=== PATIENT | female | born 1965 | race Caucasian/White ===

== ENCOUNTER 2016-10-23 09:01 | Emergency (ER) | payer MEDICARE, MEDICAID ==
[2016-10-23 09:09] VITALS: BP 109/70
--- NOTE | 2016-10-23 09:24 | UC ---
Respiratory Complaint HPI - HPI Summary HPI Summary: patient has had a severe cough for the past few days. she has a V/P shunt. denies fever. - History of Current Complaint Chief Complaint: UCRespiratory Stated Complaint: COUGH Time Seen by Provider: 10/23/16 09:13 Hx Obtained From: Patient Hx Last Menstrual Period: march 2016 ?: No Onset/Duration: Sudden Onset, Lasting Days Timing: Intermittent Episodes Severity Initially: Mild Severity Currently: Moderate Aggravating Factors: Deep Breaths, Recumbent Position Associated Signs And Symptoms: Positive: Wheezing - Risk Factors Pulmonary Embolism Risk Factors: Negative - Allergies/Home Medications Allergies/Adverse Reactions: Allergies Allergy/AdvReac Type Severity Reaction Status Date / Time Nickel Allergy Rash Verified 10/23/16 09:10 Home Medications: Home Medications Albuterol HFA INHALER* [Ventolin HFA Inhaler*] 2 puff INH Q4H PRN 10/23/16 [ History Confirmed 10/23/16] Calcium Carbonate [Calcium 600] 600 mg PO BID PRN 10/23/16 [History Confirmed ] Cholecalciferol [Vitamin D] 1,000 unit PO DAILY 10/23/16 [History Confirmed ] Montelukast Sodium TAB* [Singulair TAB*] 10 mg PO BEDTIME 10/23/16 [History Confirmed 10/23/16] PHENobarbital TAB(*) 60 mg PO BID 10/23/16 [History Confirmed 10/23/16] ValACYclovir (*) [Valtrex 1 GM(*)] 1 gm PO BID PRN 10/23/16 [History Confirmed 10/23/16] PMH/Surg Hx/FS Hx/Imm Hx Previously Healthy: Yes - Surgical History Surgical History: Yes Surgery Procedure, Year, and Place: Shunt 08/1966 - Family History Known Family History: Negative: Cardiac Disease, Hypertension - Social History Alcohol Use: None Substance Use Type: None Smoking Status (MU): Never Smoked Tobacco Review of Systems Constitutional: Negative Skin: Negative Eyes: Negative ENT: Negative Respiratory: Cough Cardiovascular: Negative Gastrointestinal: Negative Genitourinary: Negative Motor: Negative Neurovascular: Negative Musculoskeletal: Negative Neurological: Negative Psychological: Negative All Other Systems Reviewed And Are Negative: Yes Physical Exam Triage Information Reviewed: Yes Appearance: No Pain Distress, Well-Nourished, Ill-Appearing Vital Signs: Initial Vital Signs Temp 97.5 F 10/23/16 09:03 Pulse 72 10/23/16 09:03 Resp 16 10/23/16 09:03 BP 109/70 10/23/16 09:03 Pulse Ox 97 10/23/16 09:03 Vital Signs Reviewed: Yes Eye Exam: Normal ENT: Positive: Pharynx normal, Pharyngeal erythema, TMs normal Dental Exam: Normal Neck exam: Normal Respiratory: Positive: Crackles, Wheezing, Inspiration Cardiovascular Exam: Normal Cardiovascular: Positive: RRR, No Murmur, Pulses Normal Abdominal Exam: Normal Abdomen Description: Positive: Nontender, No Organomegaly, Soft Bowel Sounds: Positive: Present Musculoskeletal Exam: Normal Musculoskeletal: Positive: Strength Intact, ROM Intact, No Edema Neurological Exam: Normal Neurological: Positive: Alert, Muscle Tone Normal Psychological Exam: Normal Skin Exam: Normal UC Diagnostic Evaluation - Laboratory O2 Sat by Pulse Oximetry: 97 Respiratory Course/Dx - Course Course Of Treatment: hx obtained, exam performed ,meds reviewed, chest xray obtained and is negative, given prednisone for bronchospasm - Differential Dx/Diagnosis Differential Diagnosis/HQI/PQRI: Asthma, Bronchitis, CHF, Exacerbation Of COPD, Lower Resp Infection Provider Diagnoses: bronchospasm Discharge - Discharge Plan Condition: Stable Disposition: HOME Prescriptions: predniSONE TAB* [Deltasone TAB*] 40 mg PO DAILY #14 tab Patient Education Materials: Bronchospasm (ED) Additional Instructions: 1. take the medication as prescribed. 2./ Continue with hot tea, honey and cough drops as needed. 3. Follow up with any increase in symtpoms.
--- NOTE | 2016-10-23 09:38 | RAD ---
INDICATION: Cough. Short of breath. COMPARISON: None TECHNIQUE: PA and lateral dual-energy views were obtained. FINDINGS: Bones/Soft Tissues: There are no acute bony findings. There are bilateral shunt catheters Cardiomediastinal: The cardiomediastinal silhouette is normal. Lungs: There are no infiltrates. Pleura: There are no pleural effusions. Other: None IMPRESSION: NO ACTIVE DISEASE.
== END 2016-10-23 09:56 | disposition home or self-care (01) ==
LOC: UCCORT 09:01
DX: J98.01 Acute bronchospasm (principal); Z98.2 Presence of cerebrospinal fluid drainage device
CPT/HCPCS: 71020; 99212; G0463

== ENCOUNTER 2018-04-02 16:13 | Emergency (ER) | payer MEDICARE, MEDICAID ==
--- OUTSIDE RECORDS SUMMARY | 2018-04-02 16:24 | XMS REPORT | Continuity of Care Document ---
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 Ephraim Piña MD Primary Care Physician Unavailable Payers Type Date Identification Numbers Payment Provider Subscriber Policy Number: [id number] Medicare Noemí Madsen PayID: [id number] [address] [place] [address] Policy Number: [id number] Medicaid Noemí Madsen PayID: [id number] [address] [place] [address] Policy Number: [id number] Noemí Madsen PayID: [id number] [facility] [address] Attn: [place] [address] Advance Directives Description No Information Available Problems Date Description Provider Status Onset: 03/03/2014 Breast finding Jared Degroot MD Active Onset: 08/24/2015 Closed fracture of distal end of radius Yana Estrada PA Active Onset: 04/21/2017 Closed fracture of upper end of humerus Paul Ellison M.D. Active Onset: 05/11/2017 Pain in axilla Jocelyn Shen MD Active Onset: 05/11/2017 Exposure to other specified factors, Jocelyn Shen MD Active sequela Onset: 08/23/2017 Shoulder joint pain Jocelyn Shen MD Active Family History Date Family Member(s) Problem(s) Comments Father blindness Father Chronic Obstructive Pulmonary Disease (COPD) Father Asthma Father Emphysema Grandfather Cancer Grandmother Breast Cancer Maternal Grandmother Diabetes Social History Type Date Description Comments Sex Unknown Marital Status Single Lives With Assisted Living Through Family Nursing Home Environment Lives With caregiver and family of caregiver Diet Healthy, Well Balanced Occupation Currently Working Occupation [employer] Tobacco Use Start: Unknown Never Smoked Cigarettes ETOH Use Denies alcohol use Tobacco Use Start: Unknown Patient has never smoked Smoking Status Reviewed: 02/13/18 Patient has never smoked Allergies, Adverse Reactions, Alerts Date Description Reaction Status Severity Comments 02/25/2014 NKDA Active 03/03/2014 Nickel Active Medications Medication Date Status Form Strength Qnty SIG Indications Ordering Provider Cetirizine HCL 11/29 Active Tablets 10mg 30tab Take One J30.0 Cash, s Tablet By MD Sumit Mouth Every Evening Fluticasone 11/29 Active Suspension 50mcg/Act 16uni [place] 1 Cash ts [place] In MD Sumit Each Nostril Once Daily Calcium 600+D Active Tablets 600-400mg 2 tabs po Unknown High Potency /0000 -Unit Phenobarbital Active Tablets 64.8mg bid Unknown /0000 Vitamin D Active Tablets 1000Unit 1 by mouth Unknown /0000 twice a day Valtrex Active Tablets 1gm 2 by mouth Unknown /0000 twice a day as needed Qnasl 11/29 Hx Aerosol 80mcg/Act 8.700 Take 1 spray J30.0 gm to both MD Sumit - nostrils 11/29 daily. Singulair Hx Tablets 10mg 1 by mouth Unknown /0000 every day - 12/29 Acyclovir Hx Ointment 5% 15gm take as Unknown /0000 directed - 10/13 Sudafed Hx Tablets 30mg as needed Unknown /0000 cold - symptoms 08/23 Preparation H Hx Cream 1% Unknown Hydrocortisone /0000 - 08/23 Valtrex 00 Hx Tablets 1gm by mouth Unknown /0000 every day - 08/23 Mucinex Hx Tablets ER 600mg 60tab 1 by mouth Unknown /0000 12HR s every day Proair HFA Hx Aerosol 108(90Bas 3unit 2 puffs Unknown /0000 e) s every 4 - mcg/Act hours as 08/23 needed Aleve Hx Capsules 220mg 1 tab q8 h Unknown /0000 prn - 08/23 Acetaminophen 0000 Hx Tablets 325mg 100ta i-ii by Clune, /0000 bs mouth every Jenniferl - 4 hours as eigh, [employer] 08/23 needed Kaopectate Hx Suspension 262mg/15M 2 tablespoon Clune, /0000 L by mouth Jenniferl - after each eigh, [employer] 08/23 loose bm as /2015 needed Mylanta Hx Suspension 200-200-2 355un take 1 Clune, /0000 0mg/5ML its tablespoonfu Jenniferl - ls q 4hr prn eigh, [facility] 08/23 as needed Hydrocortisone Hx Cream 1% 45gm apply Clune, /0000 sparingly to Jenniferl - rash twice a eigh, [facility] Bacitracin Hx Ointment 500Unit/G 120un use on sores Clune, /0000 M its as needed Jenniferl - eigh, [employer] 08/23 Lotrimin AF Hx Cream 1% 1tube apply thin Clune, /0000 layer Jenniferl - eigh, [facility] 08/23 Mucinex Hx Tablets ER 600mg 60tab one tab by Clune, /0000 12HR s mouth twice Jenniferl - a day as eigh, [facility] 08/23 needed nasal stuffiness Aleve 00 Hx Capsules 220mg as needed q Unknown /0000 6 hours - 03/22 Acetaminophen 0000 Hx Tablets 325mg 2 by mouth Unknown /0000 every 4 - hours as 03/22 Kaopectate 00 Hx Suspension 262mg/15M 2 table Unknown /0000 L spoon - 03/22 Mylanta Hx Suspension 200-200-2 1 tlbs po as Unknown /0000 0mg/5ML needed q 4 - hours 03/22 Hydrocortisone 0000 Hx Cream 1% apply as Unknown /0000 needed to - skin rash 03/22 Bacitracin 00 Hx Ointment 500Unit/G Unknown (External) /0000 M - 03/22 Preparation H Hx Cream 1-0.25-14 appply to Unknown /0000 .4-15% skin for - itchy skin 03/22 Lotrimin Ultra Hx Cream 1% prn Unknown /0000 - 03/22 Mucinex Hx Tablets ER 600mg as needed Unknown /0000 12HR - 03/22 Proair HFA Hx Aerosol 108(90Bas as needed Unknown /0000 e) for cough - mcg/Act 03/[address] 20mg 1 by mouth Unknown /0000 every day Percocet Hx Tablets 5-325mg 1 by mouth Unknown /0000 every 6 hour - as needed 05/11 /2017 Ibuprofen Hx Tablets 600mg 90tab 1 tabs by Unknown /0000 s mouth every - 6 hours as 03/22 needed for pain Immunizations Description No Information Available Vital Signs Date Vital Result Comment 03/22/2018 10:03am BP Systolic Sitting Left Arm 107 mmHg BP Diastolic Sitting Left Arm 68 mmHg Body Temperature 99.2 F Heart Rate 80 /min O2 % BldC Oximetry 95 % 03/14/2018 3:51pm Heart Rate 66 /min Height 57.5 inches 4'9.50" Weight 169.50 lb BMI (Body Mass Index) 36.0 kg/m2 BSA (Body Surface Area) 1.69 m2 Welch body weight in kilograms 45 kg O2 % BldC Oximetry 99 % 02/13/2018 9:21am BP Systolic 118 mmHg BP Diastolic 64 mmHg Body Temperature 97.6 F Heart Rate 56 /min Height 57.5 inches 4'9.50" Weight 167.00 lb BMI (Body Mass Index) 35.5 kg/m2 BSA (Body Surface Area) 1.68 m2 Welch body weight in kilograms 45 kg O2 % BldC Oximetry 98 % Pain Level 0 01/01/2018 9:13am BP Systolic 103 mmHg BP Diastolic 71 mmHg Body Temperature 97.8 F Heart Rate 65 /min Respiratory Rate 20 /min Height 57.5 inches 4'9.50" Weight 168.38 lb BMI (Body Mass Index) 35.8 kg/m2 BSA (Body Surface Area) 1.68 m2 Welch body weight in kilograms 45 kg O2 % BldC Oximetry 96 % Ra Pain Level 0 12/11/2017 1:33pm BP Systolic Sitting Right Arm 117 mmHg BP Diastolic Sitting Right Arm 77 mmHg Body Temperature 97.4 F Heart Rate 68 /min Respiratory Rate 17 /min Height 57.5 inches 4'9.50" Weight 169.00 lb BMI (Body Mass Index) 35.9 kg/m2 BSA (Body Surface Area) 1.69 m2 Welch body weight in kilograms 45 kg O2 % BldC Oximetry 96 % 12/05/2017 7:57am BP Systolic 120 mmHg BP Diastolic 82 mmHg Heart Rate 78 /min Height 57.5 inches 4'9.50" Weight 192.00 lb BMI (Body Mass Index) 40.8 kg/m2 BSA (Body Surface Area) 1.78 m2 Welch body weight in kilograms 45 kg O2 % BldC Oximetry 94 % 11/15/2017 4:01pm Height 60 inches 5'0" Weight 170.00 lb BMI (Body Mass Index) 33.2 kg/m2 BSA (Body Surface Area) 1.74 m2 Welch body weight in kilograms 45 kg 11/02/2017 7:58am BP Systolic Sitting Left Arm 131 mmHg BP Diastolic Sitting Left Arm 79 mmHg Body Temperature 98.3 F Heart Rate 71 /min Respiratory Rate 17 /min Height 60 inches 5'0" Weight 169.00 lb BMI (Body Mass Index) 33.0 kg/m2 BSA (Body Surface Area) 1.74 m2 Welch body weight in kilograms 45 kg O2 % BldC Oximetry 95 % 08/23/2017 8:35am BP Systolic Sitting Right Arm 115 mmHg BP Diastolic Sitting Right Arm 78 mmHg Body Temperature 98.0 F Heart Rate 63 /min Respiratory Rate 17 /min Height 60 inches 5'0" Weight 166.00 lb BMI (Body Mass Index) 32.4 kg/m2 BSA (Body Surface Area) 1.72 m2 Welch body weight in kilograms 45 kg O2 % BldC Oximetry 97 % 07/10/2017 8:56am BP Systolic Sitting Right Arm 122 mmHg BP Diastolic Sitting Right Arm 81 mmHg Body Temperature 98.0 F Heart Rate 70 /min Respiratory Rate 17 /min Height 60 inches 5'0" Weight 164.00 lb BMI (Body Mass Index) 32.0 kg/m2 BSA (Body Surface Area) 1.72 m2 Welch body weight in kilograms 45 kg 06/05/2017 1:18pm BP Systolic Sitting Right Arm 126 mmHg BP Diastolic Sitting Right Arm 76 mmHg Body Temperature 98.4 F Heart Rate 92 /min Respiratory Rate 18 /min Height 60 inches 5'0" Weight 163.00 lb BMI (Body Mass Index) 31.8 kg/m2 BSA (Body Surface Area) 1.71 m2 Welch body weight in kilograms 45 kg 05/19/2017 9:35am BP Systolic Sitting Left Arm 103 mmHg BP Diastolic Sitting Left Arm 68 mmHg Body Temperature 97.7 F Heart Rate 63 /min Respiratory Rate 24 /min Height 60 inches 5'0" Weight 1614.00 lb BMI (Body Mass Index) 315.2 kg/m2 BSA (Body Surface Area) 4.53 m2 Welch body weight in kilograms 45 kg O2 % BldC Oximetry 96 % Ra 05/11/2017 3:26pm BP Systolic Sitting Right Arm 111 mmHg BP Diastolic Sitting Right Arm 70 mmHg Body Temperature 97.9 F Heart Rate 72 /min Respiratory Rate 18 /min Height 60 inches 5'0" Weight 161.00 lb BMI (Body Mass Index) 31.4 kg/m2 BSA (Body Surface Area) 1.70 m2 Welch body weight in kilograms 45 kg 05/03/2017 10:01am BP Systolic Sitting Left Arm 106 mmHg BP Diastolic Sitting Left Arm 73 mmHg Body Temperature 97.9 F Heart Rate 72 /min Respiratory Rate 20 /min Height 60 inches 5'0" Weight 163.00 lb BMI (Body Mass Index) 31.8 kg/m2 BSA (Body Surface Area) 1.71 m2 Welch body weight in kilograms 45 kg 04/21/2017 9:34am BP Systolic Sitting Right Arm 112 mmHg BP Diastolic Sitting Right Arm 72 mmHg Body Temperature 98.3 F Heart Rate 71 /min Respiratory Rate 19 /min Height 60 inches 5'0" Weight 153.00 lb BMI (Body Mass Index) 29.9 kg/m2 BSA (Body Surface Area) 1.67 m2 Welch body weight in kilograms 45 kg 03/15/2017 8:39am Weight 164.38 lb 12/29/2016 1:04pm BP Systolic Sitting Left Arm 124 mmHg BP Diastolic Sitting Left Arm 80 mmHg Heart Rate 81 /min Respiratory Rate 16 /min Height 57 inches 4'9" Weight 162.00 lb BMI (Body Mass Index) 35.1 kg/m2 BSA (Body Surface Area) 1.64 m2 Welch body weight in kilograms 45 kg O2 % BldC Oximetry 97 % Ora 11/29/2016 12:55pm BP Systolic Sitting Left Arm 102 mmHg BP Diastolic Sitting Left Arm 66 mmHg Heart Rate 75 /min Respiratory Rate 18 /min Height 57 inches 4'9" Weight 162.00 lb BMI (Body Mass Index) 35.1 kg/m2 BSA (Body Surface Area) 1.64 m2 Welch body weight in kilograms 45 kg O2 % BldC Oximetry 96 % 09/01/2016 3:36pm BP Systolic 116 mmHg BP Diastolic 78 mmHg Height 57 inches 4'9" Weight 161.00 lb BMI (Body Mass Index) 34.8 kg/m2 BSA (Body Surface Area) 1.64 m2 Welch body weight in kilograms 45 kg 12/11/2015 9:58am Weight 166.00 lb 09/29/2015 8:48am Weight 167.00 lb 08/24/2015 11:00am BP Systolic Sitting Left Arm 132 mmHg BP Diastolic Sitting Left Arm 90 mmHg Height 59 inches 4'11" Weight 169.00 lb BMI (Body Mass Index) 34.1 kg/m2 BSA (Body Surface Area) 1.72 m2 Welch body weight in kilograms 45 kg 10/13/2014 1:52pm BP Systolic 116 mmHg BP Diastolic 72 mmHg Heart Rate 78 /min Respiratory Rate 18 /min Height 60 inches 5'0" Weight 163.00 lb BMI (Body Mass Index) 31.8 kg/m2 BSA (Body Surface Area) 1.71 m2 Last Menstrual Period [id number] 03/03/2014 3:07pm Heart Rate 76 /min Respiratory Rate 18 /min Height 60 inches 5'0" Weight 174.00 lb BMI (Body Mass Index) 34.0 kg/m2 BSA (Body Surface Area) 1.76 m2 Results Test Date Facility Test Result H/L Range Note Xray 08/23/2016 [facility] - Radiology Ultrasound, birads 3, [address] Breast - Right mo f/u [place], [place] [id number] [phone] Laboratory test 03/10/2014 [facility] Breast Biopsy - See Note [address] [place] [address] [phone] OPERATION/PROCEDURE U/S guided right breast biopsy DIAGNOSIS: PART 1: "RIGHT BREAST CORE BIOPSY AT 12:00, 2 CM. FROM NIPPLE": FIBROCYSTIC CHANGE CONSISTING OF STROMAL FIBROSIS, DUCTAL DILATION, MILD DUCTAL HYPERPLASIA WITHOUT ATYPIA, AND MICROCALCIFICATIONS ASSOCIATED WITH EPITHELIAL STRUCTURES. PART 2: "RIGHT BREAST CORE BIOPSY AT 12:00, 1 CM. FROM NIPPLE": FIBROADENOMA. ARY/theodore GROSS Part 1. Received in formalin labeled, "RIGHT BREAST CORE BIOPSY AT 12:00, 2 CM. FROM NIPPLE", are three pieces of god[place], soft fibroadipose tissue measuring up to 1.8 cm. in length and 0.2 cm. in diameter. Submitted in toto in block #1. Part 2. Received in formalin labeled, "RIGHT BREAST CORE BIOPSY AT 12:00, 1 CM. FROM NIPPLE", are three pieces of [place], soft fibroadipose tissue measuring up to 1.8 cm. in length and 0.2 cm. in diameter. Submitted in toto in block #2. ARY/theodore MICROSCOPIC Part 1: Sections show several changes characterized by: an increase in stromal fibrosis, ductal dilation and microcalcifications associated with epithelial structures. Focally the terminal duct lobular unit are slightly dilated and filled with slightly monotonous cells, raising the concern of a lobular hyperplasia. Immunohistochemistry studies were performed at [facility] and interpreted at [facility] with proper controls. These cells are positive for E-cadherin, consistent with mild usual ductal hyperplasia. Part 2: Sections show a proliferating, dense fibrosis distorting, stretching , and distorting epithelial elements. PRE OPERATIVE DIAGNOSIS Abnormal findings on radiological exam of right breast REVIEW CODE CODE: I Signed Electronically signed JARED VALE MD 03/12/14 1306 Procedures Date Code Description Status 02/13/2018 65560 Radiology, Wrist Complete Completed 01/01/2018 16876 Radiology, Wrist Complete Completed 12/11/2017 00476 Radial shaft fracture closed w/o manipulation Completed 12/05/2017 30415 Debridement Nails Any Method 6 Or More Completed 11/02/2017 69430 Radiology, Shoulder: Two Views (Sso) Completed 08/23/2017 88911 Radiology, Shoulder: Two Views (Sso) Completed 07/10/2017 03172 Radiology, Shoulder: Two Views (Sso) Completed 06/05/2017 67021 Radiology, Shoulder: Two Views (Sso) Completed 05/19/2017 78201 Radiology, Shoulder: Two Views (Sso) Completed 05/19/2017 66218 Radiology, Shoulder: Two Views (Sso) Completed 05/11/2017 09241 Radiology, Shoulder: Two Views (Sso) Completed 05/11/2017 05908 Radiology, Shoulder: Two Views (Sso) Completed 05/03/2017 67602 Radiology, Shoulder: Two Views (Sso) Completed 04/24/2017 12841 FX proximal humeral w/manipulation w/wo traction Completed 04/24/2017 70813 FX proximal humeral w/manipulation w/wo traction Completed 04/24/2017 72558 Injection For Nerve Block, Brachial Plexus Single Completed 04/24/2017 60137 Injection For Nerve Block, Brachial Plexus Single Completed 11/29/2016 24899 Bronchospasm Provocation Evaluation Multi Spirometric Completed Determinati 11/29/2016 82156 Spirometry Completed 12/11/2015 31104 Radiology, Wrist Complete Completed 12/11/2015 46871 Radiology, Wrist Complete Completed 09/29/2015 25493 Radiology, Wrist Complete Completed 09/29/2015 73483 Radiology, Wrist Complete Completed 09/16/2015 58671 Radiology, Wrist Complete Completed 09/16/2015 24379 Radiology, Wrist Complete Completed 08/24/2015 74872 Fracture distal radial-closed Completed 02/20/2015 [id number] Mammogram Completed 08/18/2014 [id number] Mammogram Completed 02/13/2014 [id number] Mammogram Completed 01/23/2014 [id number] Mammogram Completed 03/06/2013 [id number] Bone Mineral Density Test Completed Encounters Type Date Location Provider Dx Diagnosis Office Visit 03/22/2018 Orthopaedic Office Wendie Bernice M25.562 Pain in left knee 9:45a S., [facility]IN [facility] M17.12 Unilateral primary osteoarthritis, left knee Office Visit 12/11/2017 1:45p Orthopaedic Office Ac, S52.502A Unsp fracture MD Jocelyn of the lower end of left radius, init W01.0xxA Fall same lev from slip/trip w/o strike against object, init Y92.838 [facility] area as [facility] Office Visit 11/15/2017 Surgical Office Kalani N64.59 Other signs and 4:00p Giovanny Marcial, symptoms in M.D. breast Office Visit 11/02/2017 Orthopaedic Jocelyn Shen, S42.202S Unspecified 8:30a Office MD fracture of upper end of left humerus, sequela X58.xxxS Exposure to other specified factors, sequela Office Visit 08/23/2017 8:30a Orthopaedic Office Jocelyn Shen, M25.512 Pain in left shoulder S42.202S Unspecified fracture of upper end of left humerus, sequela X58.xxxS Exposure to other specified factors, sequela Office Visit 05/19/2017 9:15a Orthopaedic Office Ac S42.202D Unsp fx upper MD Jocelyn end of l humerus, subs for fx w routn heal X58.xxxD Exposure to other specified factors, subsequent encounter Office Visit 05/11/2017 3:30p Orthopaedic Office Jocelyn Shen, M79.622 Pain in left upper arm S42.202S Unspecified fracture of upper end of left humerus, sequela X58.xxxS Exposure to other specified factors, sequela Office Visit 04/21/2017 Orthopaedic Paul Ellison S42.202A Unsp fracture 9:00a Office M.D. of upper end of left humerus, init for clos fx Office Visit 03/15/2017 Surgical Office Kalani Z12.31 Encntr screen 8:30a Giovanny Marcial, mammogram for M.D. malignant neoplasm of breast R92.8 Ot abn and inconclusive findings on dx imaging of breast Office Visit 12/29/2016 1:00p Pulmonology Sumit Castrejon MD J30.0 Vasomotor rhinitis K21.9 Gastro-esophageal reflux disease without esophagitis Office Visit 11/29/2016 1:00p Pulmonology Sumit Castrejon MD J30.0 Vasomotor rhinitis K21.9 Gastro-esophageal reflux disease without esophagitis J41.0 Simple chronic bronchitis Office Visit 09/01/2016 Surgical Office Nano Uriarte92.8 Oth abn and 3:30p Giovanny Marcial, inconclusive M.D. findings on dx imaging of breast Office Visit 02/24/2016 Surgical Office Kalani Z12.31 Encntr screen 1:00p Giovanny Marcial, mammogram for M.D. malignant neoplasm of breast Office Visit 02/02/2016 Orthopaedic Yana Estrada, S52.514D Nondisp fx of r 2:00p Office PA radial styloid pro, 7thD Office Visit 08/26/2015 Surgical Office Nano Uriarte92.8 Oth abn and 1:45p Giovanny Marcial, inconclusive M.D. findings on dx imaging of breast Office Visit 02/25/2015 Surgical Office Jared Degroot R92.8 Oth abn and 1:00p inconclusive findings on dx imaging of breast Office Visit 10/13/2014 Family Medicine Clune, 959.01 Injury Head 1:45p [address] [place], Unspecified [employer] E885.9 Fall From Other Slipping,Tripping, Or Stumbling 719.45 Pain Joint Pelvic Region & Thigh 959.01 Injury Head Unspecified 719.45 Pain Joint Pelvic Region & Thigh e885.9 Fall From Other Slipping,Tripping, Or Stumbling Office Visit 09/01/2014 1:15p Surgical Office Zane, 217 Benign Neoplasm MD Jared Breast Office Visit 03/03/2014 2:45p Surgical Office Zane 793.89 Abnormal Findings MD Jared On Radiological Exam Of Breast Other Plan of Treatment 03/22/2018 - Bernice Pressley, RPACM25.562 Pain in left kneeM17.12 Unilateral primary osteoarthritis, left kneeAllComments:I suggested she use the ibuprofen regularly for a few days and Tylenol for breakthrough pain. I would like her to use ice for thirty minutes three times a day for the next couple of days as well. Sheis going to remain out of work today and tomorrow and may return to work on Monday. I will see her back as needed.
--- OUTSIDE RECORDS SUMMARY | 2018-04-02 16:24 | XMS REPORT | Continuity of Care Document ---
:1965 External Reference #:[id number] Author Name Giovanny Uriarte M.D. 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 Ephraim Piña MD Primary Care Physician Unavailable Payers Type Date Identification Numbers Payment Provider Subscriber Policy Number: [id number] Medicare Noemí Madsen PayID: [id number] [address] [place] [address] Policy Number: [id number] Medicaid Noemí Madsen PayID: [id number] [address] [place] [address] Policy Number: [id number] [place] Noemí Madsen PayID: [id number] Attn: [place] [address] Advance Directives Description No Information Available Problems Date Description Provider Status Onset: 03/03/2014 Breast finding Jared Degroot MD Active Onset: 08/24/2015 Closed fracture of distal end of radius Yana Estrada PA Active Onset: 04/21/2017 Closed fracture of upper end of humerus Pual Ellison M.D. Active Onset: 05/11/2017 Pain in [...] Single Lives With Assisted Living Through Family Intermediate Environment Lives With caregiver and family of caregiver Diet Healthy, Well Balanced Occupation Currently Working Occupation [employer] Tobacco Use Start: Unknown Never Smoked Cigarettes [...] Active Tablets 10mg 30tab Take One J30.0 s Tablet By MD Sumit Mouth Every Evening Fluticasone 11/29 Active Suspension 50mcg/Act 16uni [place] 1 ts [place] In MD Sumit Each Nostril Once Daily Calcium 600+D Active Tablets 600-400mg 2 tabs po Unknown High Potency /0000 -Unit Phenobarbital Active Tablets 64.8mg bid Unknown / Vitamin D Active Tablets 1000Unit 1 by mouth Unknown /0000 twice a day Aleve Active Capsules 220mg as needed q Unknown /0000 6 hours Valtrex Active Tablets 1gm 2 by mouth Unknown /0000 twice a day as needed Acetaminophen Active Tablets 325mg 2 by mouth Unknown /0000 every 4 hours as needed Kaopectate Active Suspension 262mg/15M 2 table Unknown /0000 L spoon Mylanta Active Suspension 200-200-2 1 tlbs po as /0000 0mg/5ML needed q 4 hours Hydrocortisone Active Cream 1% apply as Unknown /0000 needed to skin rash Bacitracin Active Ointment 500Unit/G Unknown (External) /0000 M Preparation H Active Cream 1-0.25-14 appply to Unknown /0000 .4-15% skin for itchy skin Lotrimin Ultra Active Cream 1% prn Unknown /0000 Mucinex Active Tablets ER 600mg as needed Unknown /0000 12HR Proair HFA Active Aerosol 108(90Bas as needed Unknown /0000 e) for cough mcg/Act Ibuprofen Active Tablets 600mg 90tab 1 tabs by Unknown /0000 s mouth every 6 hours as needed for pain Qnasl 11/29 Hx Aerosol 80mcg/Act 8.700 Take 1 spray J30.0 Kheti gm to both MD Sumit - nostrils 11/29 daily. Singulair Hx Tablets 10mg 1 by mouth Unknown /0000 every day - 12/29 Acyclovir Hx Ointment 5% 15gm take as Unknown /0000 directed - 10/13 Sudafed Hx Tablets 30mg as needed Unknown /0000 cold - symptoms 08/23 Preparation H Hx Cream 1% Unknown Hydrocortisone / - 08/23 Valtrex Hx Tablets 1gm by mouth Unknown /0000 every day - 08/23 Mucinex Hx Tablets ER 600mg 60tab 1 by mouth Unknown /0000 12HR s every day Proair HFA Hx Aerosol 108(90Bas 3unit 2 puffs Unknown /0000 e) s every 4 - mcg/Act hours as 08/23 Aleve Hx Capsules 220mg 1 tab q8 h Unknown /0000 prn - 08/23 Acetaminophen Hx Tablets 325mg 100ta i-ii by Clune, /0000 bs mouth every Jenniferl - 4 hours as eigh, [employer] 08/23 needed Kaopectate Hx Suspension 262mg/15M 2 tablespoon Clune, /0000 L by mouth Jenniferl - after each eigh, [employer] 08/23 loose bm as needed Mylanta Hx Suspension 200-200-2 355un take 1 Clune, /0000 0mg/5ML its tablespoonfu Jenniferl - ls q 4hr prn eigh, [employer] 08/23 as needed Hydrocortisone Hx Cream 1% 45gm apply Clune, /0000 sparingly to Jenniferl - rash twice a eigh, [employer] 08/23 day Bacitracin Hx Ointment 500Unit/G 120un use on sores Clune, /0000 M its as needed Jenniferl - eigh, [facility] 08/23 Lotrimin AF Hx Cream 1% 1tube apply thin Clune, / layer Jenvirgilioferl - elijah, [facility] 08/23 Mucinex Hx Tablets ER 600mg 60tab one tab by Clune, /0000 12HR s mouth twice Jenferl - a day as eigh, [facility] 08/23 needed stuffiness Omeprazole Hx Capsules DR 20mg 1 by mouth Unknown /0000 every day Percocet 00 Hx Tablets 5-325mg 1 by mouth Unknown /0000 every 6 hour - as needed 05/11 Immunizations Description No Information Available Vital Signs Date Vital Result Comment 03/14/2018 3:51pm Heart Rate 66 /min Height 57.5 inches 4'9.50" Weight 169.50 lb BMI (Body Mass Index) 36.0 kg/m2 BSA (Body Surface Area) 1.69 m2 [place] body weight in kilograms 45 kg O2 % BldC Oximetry 99 % 02/13/2018 9:21am BP Systolic 118 mmHg BP Diastolic 64 mmHg Body Temperature 97.6 F Heart Rate 56 /min Height 57.5 inches 4'9.50" Weight 167.00 lb BMI (Body Mass Index) 35.5 kg/m2 BSA (Body Surface Area) 1.68 m2 [place] body weight in kilograms 45 kg O2 % BldC Oximetry 98 % Pain Level 0 01/01/2018 9:13am BP Systolic 103 mmHg BP Diastolic 71 mmHg Body Temperature 97.8 F Heart Rate 65 /min Respiratory Rate 20 /min Height 57.5 inches 4'9.50" Weight 168.38 lb BMI (Body Mass Index) 35.8 kg/m2 BSA (Body Surface Area) 1.68 m2 [place] body weight in kilograms 45 kg O2 % BldC Oximetry 96 % Ra Pain Level 0 12/11/2017 1:33pm BP Systolic Sitting Right Arm 117 mmHg BP Diastolic Sitting Right Arm 77 mmHg Body Temperature 97.4 F Heart Rate 68 /min Respiratory Rate 17 /min Height 57.5 inches 4'9.50" Weight 169.00 lb BMI (Body Mass Index) 35.9 kg/m2 BSA (Body Surface Area) 1.69 m2 [place] body weight in kilograms 45 kg O2 % BldC Oximetry 96 % 12/05/2017 7:57am BP Systolic 120 mmHg BP Diastolic 82 mmHg Heart Rate 78 /min Height 57.5 inches 4'9.50" Weight 192.00 lb BMI (Body Mass Index) 40.8 kg/m2 BSA (Body Surface Area) 1.78 m2 [place] body weight in kilograms 45 kg O2 % BldC Oximetry 94 % 11/15/2017 4:01pm Height 60 inches 5'0" Weight 170.00 lb BMI (Body Mass Index) 33.2 kg/m2 BSA (Body Surface Area) 1.74 m2 [place] body weight in kilograms 45 kg 11/02/2017 7:58am BP Systolic Sitting Left Arm 131 mmHg BP Diastolic Sitting Left Arm 79 mmHg Body Temperature 98.3 F Heart Rate 71 /min Respiratory Rate 17 /min Height 60 inches 5'0" Weight 169.00 lb BMI (Body Mass Index) 33.0 kg/m2 BSA (Body Surface Area) 1.74 m2 [place] body weight in kilograms 45 kg O2 % BldC Oximetry 95 % 08/23/2017 8:35am BP Systolic Sitting Right Arm 115 mmHg BP Diastolic Sitting Right Arm 78 mmHg Body Temperature 98.0 F Heart Rate 63 /min Respiratory Rate 17 /min Height 60 inches 5'0" Weight 166.00 lb BMI (Body Mass Index) 32.4 kg/m2 BSA (Body Surface Area) 1.72 m2 [place] body weight in kilograms 45 kg O2 % BldC Oximetry 97 % 07/10/2017 8:56am BP Systolic Sitting Right Arm 122 mmHg BP Diastolic Sitting Right Arm 81 mmHg Body Temperature 98.0 F Heart Rate 70 /min Respiratory Rate 17 /min Height 60 inches 5'0" Weight 164.00 lb BMI (Body Mass Index) 32.0 kg/m2 BSA (Body Surface Area) 1.72 m2 [place] body weight in kilograms 45 kg 06/05/2017 1:18pm BP Systolic Sitting Right Arm 126 mmHg BP Diastolic Sitting Right Arm 76 mmHg Body Temperature 98.4 F Heart Rate 92 /min Respiratory Rate 18 /min Height 60 inches 5'0" Weight 163.00 lb BMI (Body Mass Index) 31.8 kg/m2 BSA (Body Surface Area) 1.71 m2 [place] body weight in kilograms 45 kg 05/19/2017 9:35am BP Systolic Sitting Left Arm 103 mmHg BP Diastolic Sitting Left Arm 68 mmHg Body Temperature 97.7 F Heart Rate 63 /min Respiratory Rate 24 /min Height 60 inches 5'0" Weight 1614.00 lb BMI (Body Mass Index) 315.2 kg/m2 BSA (Body Surface Area) 4.53 m2 [place] body weight in kilograms 45 kg O2 % BldC Oximetry 96 % Ra 05/11/2017 3:26pm BP Systolic Sitting Right Arm 111 mmHg BP Diastolic Sitting Right Arm 70 mmHg Body Temperature 97.9 F Heart Rate 72 /min Respiratory Rate 18 /min Height 60 inches 5'0" Weight 161.00 lb BMI (Body Mass Index) 31.4 kg/m2 BSA (Body Surface Area) 1.70 m2 [place] body weight in kilograms 45 kg 05/03/2017 10:01am BP Systolic Sitting Left Arm 106 mmHg BP Diastolic Sitting Left Arm 73 mmHg Body Temperature 97.9 F Heart Rate 72 /min Respiratory Rate 20 /min Height 60 inches 5'0" Weight 163.00 lb BMI (Body Mass Index) 31.8 kg/m2 BSA (Body Surface Area) 1.71 m2 [place] body weight in kilograms 45 kg 04/21/2017 9:34am BP Systolic Sitting Right Arm 112 mmHg BP Diastolic Sitting Right Arm 72 mmHg Body Temperature 98.3 F Heart Rate 71 /min Respiratory Rate 19 /min Height 60 inches 5'0" Weight 153.00 lb BMI (Body Mass Index) 29.9 kg/m2 BSA (Body Surface Area) 1.67 m2 [place] body weight in kilograms 45 kg 03/15/2017 8:39am Weight 164.38 lb 12/29/2016 1:04pm BP Systolic Sitting Left Arm 124 mmHg BP Diastolic Sitting Left Arm 80 mmHg Heart Rate 81 /min Respiratory Rate 16 /min Height 57 inches 4'9" Weight 162.00 lb BMI (Body Mass Index) 35.1 kg/m2 BSA (Body Surface Area) 1.64 m2 [place] body weight in kilograms 45 kg O2 % BldC Oximetry 97 % Ora 11/29/2016 12:55pm BP Systolic Sitting Left Arm 102 mmHg BP Diastolic Sitting Left Arm 66 mmHg Heart Rate 75 /min Respiratory Rate 18 /min Height 57 inches 4'9" Weight 162.00 lb BMI (Body Mass Index) 35.1 kg/m2 BSA (Body Surface Area) 1.64 m2 [place] body weight in kilograms 45 kg O2 % BldC Oximetry 96 % 09/01/2016 3:36pm BP Systolic 116 mmHg BP Diastolic 78 mmHg Height 57 inches 4'9" Weight 161.00 lb BMI (Body Mass Index) 34.8 kg/m2 BSA (Body Surface Area) 1.64 m2 [place] body weight in kilograms 45 kg 12/11/2015 9:58am Weight 166.00 lb 09/29/2015 8:48am Weight 167.00 lb 08/24/2015 11:00am BP Systolic Sitting Left Arm 132 mmHg BP Diastolic Sitting Left Arm 90 mmHg Height 59 inches 4'11" Weight 169.00 lb BMI (Body Mass Index) 34.1 kg/m2 BSA (Body Surface Area) 1.72 m2 [place] body weight in kilograms 45 kg 10/13/2014 1:52pm BP Systolic 116 mmHg BP Diastolic 72 mmHg Heart Rate 78 /min Respiratory Rate 18 /min Height 60 inches 5'0" Weight 163.00 lb BMI (Body Mass Index) 31.8 kg/m2 BSA (Body Surface Area) 1.71 m2 Last Menstrual Period [id number] 03/03/2014 3:07pm Heart Rate 76 /min Respiratory Rate 18 /min Height 60 inches 5'0" Weight 174.00 lb BMI (Body Mass Index) 34.0 kg/m2 BSA (Body Surface Area) 1.76 m2 Results Test Date Facility Test Result H/L Range Note Xray 08/23/2016 [facility] - Radiology Ultrasound, birads 3, [address] Breast - Right mo f/[place] [address] [phone] Laboratory test 03/10/2014 [facility] Breast Biopsy - See Note [address] [place] [address] [phone] OPERATION/PROCEDURE U/S guided right breast biopsy DIAGNOSIS: PART 1: "RIGHT BREAST CORE BIOPSY AT 12:00, 2 CM. FROM NIPPLE": FIBROCYSTIC CHANGE CONSISTING OF STROMAL FIBROSIS, DUCTAL DILATION, MILD DUCTAL HYPERPLASIA WITHOUT ATYPIA, AND MICROCALCIFICATIONS ASSOCIATED WITH EPITHELIAL STRUCTURES. PART 2: "RIGHT BREAST CORE BIOPSY AT 12:00, 1 CM. FROM NIPPLE": FIBROADENOMA. Ashleigh GROSS Part 1. Received in formalin labeled, [...] lobular hyperplasia. Immunohistochemistry studies were performed at [facility] and interpreted at [facility] with proper controls. These cells are positive for E-cadherin, consistent with mild usual ductal hyperplasia. Part 2: Sections show a proliferating, dense fibrosis distorting, stretching , and distorting epithelial elements. PRE OPERATIVE DIAGNOSIS Abnormal findings on radiological exam of right breast REVIEW CODE CODE: I Signed Electronically signed JARED VALE MD 03/12/14 1306 Procedures Date Code Description Status 02/13/2018 18900 Radiology, Wrist Complete Completed 01/01/2018 06361 Radiology, Wrist Complete Completed 12/11/2017 95511 Radial shaft fracture closed w/o manipulation Completed 12/05/2017 67468 Debridement Nails Any Method 6 Or More Completed 11/02/2017 79369 Radiology, Shoulder: Two Views (Sso) Completed 08/23/2017 01685 Radiology, Shoulder: Two Views (Sso) Completed 07/10/2017 34698 Radiology, Shoulder: Two Views (Sso) Completed 06/05/2017 33007 Radiology, Shoulder: Two Views (Sso) Completed 05/19/2017 69079 Radiology, Shoulder: Two Views (Sso) Completed 05/19/2017 85910 Radiology, Shoulder: Two Views (Sso) Completed 05/11/2017 66559 Radiology, Shoulder: Two Views (Sso) Completed 05/11/2017 96377 Radiology, Shoulder: Two Views (Sso) Completed 05/03/2017 29393 Radiology, Shoulder: Two Views (Sso) Completed 04/24/2017 40969 FX proximal humeral w/manipulation w/wo traction Completed 04/24/2017 62657 FX proximal humeral w/manipulation w/wo traction Completed 04/24/2017 60350 Injection For Nerve Block, Brachial Plexus Single Completed 04/24/2017 68925 Injection For Nerve Block, Brachial Plexus Single Completed 11/29/2016 44221 Bronchospasm Provocation Evaluation Multi Spirometric Completed Determinati 11/29/2016 46337 Spirometry Completed 12/11/2015 95917 Radiology, Wrist Complete Completed 12/11/2015 03844 Radiology, Wrist Complete Completed 09/29/2015 16561 Radiology, Wrist Complete Completed 09/29/2015 78946 Radiology, Wrist Complete Completed 09/16/2015 94272 Radiology, Wrist Complete Completed 09/16/2015 50091 Radiology, Wrist Complete Completed 08/24/2015 88808 Fracture distal radial-closed Completed 02/20/2015 [id number] Mammogram Completed 08/18/2014 [id number] Mammogram Completed 02/13/2014 [id number] Mammogram Completed 01/23/2014 [id number] Mammogram Completed 03/06/2013 [id number] Bone Mineral Density Test Completed Encounters Type Date Location Provider Dx Diagnosis Office Visit 12/11/2017 Orthopaedic Office Jocelyn Shen, S52.502A Unsp fracture of 1:45p MD the lower end of left radius, init W01.0xxA Fall same lev from slip/trip w/o strike against object, init Y92.838 [facility] as [facility] Office Visit 11/15/2017 Surgical Office Amyjosedolly N64.59 Other signs and 4:00p Giovanny Marcial, symptoms in M.D. breast Office Visit 11/02/2017 Orthopaedic Jocelyn Shen, S42.202S Unspecified 8:30a Office MD fracture of upper end of left humerus, sequela X58.xxxS Exposure to other specified factors, sequela Office Visit 08/23/2017 8:30a Orthopaedic Office Jocelyn Shen, M25.512 Pain in left MD shoulder S42.202S Unspecified fracture of upper end [...] factors, sequela Office Visit 04/21/2017 Orthopaedic Paul Ellison, S42.202A Unsp fracture 9:00a Office M.D. of upper end of left humerus, init for clos fx Office Visit 03/15/2017 Surgical Office Kalani Z12.31 Encntr screen 8:30a Giovanny Marcial, mammogram for M.D. malignant neoplasm of breast R92.8 Oth abn and inconclusive findings on dx imaging of breast Office Visit 12/29/2016 1:00p Pulmonology Sumit Castrejon MD J30.0 Vasomotor rhinitis K21.9 Gastro-esophageal reflux disease without esophagitis Office Visit 11/29/2016 1:00p Pulmonology Sumit Castrejon MD J30.0 Vasomotor rhinitis K21.9 Gastro-esophageal reflux disease without esophagitis J41.0 Simple chronic bronchitis Office Visit 09/01/2016 Surgical Office Kalani R92.8 Oth abn and 3:30p Giovanny Marcial, inconclusive M.D. findings on dx imaging of breast Office Visit 02/24/2016 Surgical Office Kalani Z12.31 Encntr screen 1:00p Giovanny Marcial, mammogram for M.D. malignant neoplasm of breast Office Visit 02/02/2016 Orthopaedic Yana Estrada, S52.514D Nondisp fx of r 2:00p Office PA radial styloid pro, 7thD Office Visit 08/26/2015 Surgical Office Kalani R92.8 Oth abn and 1:45p Giovanny Marcial, inconclusive M.D. findings on dx imaging of breast Office Visit 02/25/2015 Surgical Office Jared Degroot, R92.8 Oth abn and 1:00p inconclusive findings on dx imaging of breast Office Visit 10/13/2014 Family Medicine Clune, 959.01 Injury Head 1:45p [address] [place], Unspecified [employer] E885.9 Fall From Other Slipping,Tripping, Or Stumbling 719.45 Pain Joint Pelvic Region & Thigh 959.01 Injury Head Unspecified 719.45 Pain Joint Pelvic Region & Thigh e885.9 Fall From Other Slipping,Tripping, Or Stumbling Office Visit 09/01/2014 1:15p Surgical Office Zane, 217 Benign Neoplasm MD Jared Breast Office Visit 03/03/2014 2:45p Surgical Office Zane, 793.89 Abnormal Findings MD Jared On Radiological Exam Of Breast Other Plan of Treatment Future Appointment(s):04/02/2018 9:25 am - Heron Grey DPM at Podiatry Evhdhl5003/14/2018 - Giovanny Uriarte M.D.Z12.31 Encounter for screening mammogram for malignant neoplasm of breastNew Xrays:Mammography, Screening Bilateral Mammogram, Scheduled: 03/11/19Comments:Normal exam as follow up the unremarkable mammogram.Continue self breast exam and return if there are any concerns or developments. Questions addressed.
[2018-04-02 16:31] VITALS: BP 128/76
--- NOTE | 2018-04-02 16:47 | UC ---
Minor Trauma HPI - HPI Summary HPI Summary: 52-year-old female comes in with a chief complaint of left knee right posterior pelvis and low back pain after falling 2 hours ago. Patient slipped and fell from a standing position. The knee hurts the most. She has been able to walk but with pain. When she fell she injured the knee and also her right posterior pelvis and low back. Pain is worse with movement better with rest. No weakness or numbness. No skin break. - History of Current Complaint Chief Complaint: UCBackPain Stated Complaint: FALL Time Seen by Provider: 04/02/18 16:30 Hx Last Menstrual Period: march 2016 Pain Intensity: 3 - Allergies/Home Medications Allergies/Adverse Reactions: Allergies Allergy/AdvReac Type Severity Reaction Status Date / Time nickel Allergy Rash Verified 04/02/18 16:31 Home Medications: Home Medications Azelastine 0.15% NASAL(NF) [Astepro 0.15% NASAL (NF)] 1 spray INH DAILY [History Confirmed 04/02/18] Cetirizine HCl [Zyrtec] 10 mg PO DAILY 04/02/18 [History Confirmed 04/02/18] Fluticasone NASAL SPRAY 50MCG* [Flonase NASAL SPRAY 50MCG*] 1 spray INH DAILY [History Confirmed 04/02/18] PMH/Surg Hx/FS Hx/Imm Hx Previously Healthy: Yes - Surgical History Surgical History: Yes Surgery Procedure, Year, and Place: Shunt 08/1966. BILATERAL BREAST BIOPSY - Family History Known Family History: Negative: Cardiac Disease, Hypertension - Social History Alcohol Use: None Substance Use Type: None Smoking Status (MU): Never Smoked Tobacco Review of Systems All Other Systems Reviewed And Are Negative: Yes Constitutional: Positive: Negative Skin: Positive: Negative Eyes: Positive: Negative ENT: Positive: Negative Respiratory: Positive: Negative Cardiovascular: Positive: Negative Gastrointestinal: Positive: Negative Motor: Positive: Negative Neurovascular: Positive: Negative Musculoskeletal: Positive: Other: - SEE HPI Neurological: Positive: Negative Psychological: Positive: Negative Is Patient Immunocompromised?: No Physical Exam Triage Information Reviewed: Yes Appearance: Well-Appearing, No Pain Distress, Well-Nourished Vital Signs: Initial Vital Signs Temp 99 F 04/02/18 16:27 Pulse 77 04/02/18 16:27 Resp 14 04/02/18 16:27 BP 128/76 04/02/18 16:27 Pulse Ox 98 04/02/18 16:27 Vital Signs Reviewed: Yes Eye Exam: Normal Eyes: Positive: Conjunctiva Clear Neck exam: Normal Neck: Positive: Supple Respiratory: Positive: No respiratory distress Musculoskeletal: Positive: Other: - Patient is tender to palpation tender to palpation over the right SI joint and also the lower part of the lumbar spine. Left knee is tender to palpation over the patella. Has full range of motion and stable to exam negative Yeimi's. Neurological Exam: Normal Neurological: Positive: Alert, Muscle Tone Normal Psychological Exam: Normal Psychological: Positive: Age Appropriate Behavior Skin Exam: Normal Minor Trauma Course/Dx - Course Course Of Treatment: I discussed the patient's x-rays with her and her caregiver. The left knee x-ray I do not see any fractures the same with the pelvis the same with the lumbar spine radiologist reading is pending. That is ibuprofen or acetaminophen as needed and reevaluation if worsen or any other questions or concerns. - Differential Dx/Diagnosis Provider Diagnosis: Low back pain, Pelvic contusion, Contusion of left knee Discharge - Sign-Out/Discharge Documenting (check all that apply): Patient Departure All imaging exams completed and their final reports reviewed: No - Discharge Plan Condition: Stable Disposition: HOME Patient Education Materials: Knee Pain (ED), Contusion in Adults (ED), Acute Low Back Pain (ED) Referrals: Ephraim Piña MD [Primary Care Provider] - Additional Instructions: FOLLOW UP WITH YOUR DOCTOR IF NOT COMPLETELY IMPROVED. GET RECHECKED SOONER WITH ANY WORSENING OF YOUR CONDITION OR QUESTIONS OR CONCERNS. - Billing Disposition and Condition Condition: STABLE Disposition: Home
[2018-04-02] MEDS ORDERED: Acetaminophen TAB* 325 MG PO ONE (17:25)
--- NOTE | 2018-04-03 07:33 | UC ---
- Progress Note Progress Note: xray reports: left knee: FINDINGS: The bones are in normal alignment. No joint effusion or fracture is seen. Joint spaces appear maintained. IMPRESSION: NO EVIDENCE FOR FRACTURE. Lumbar spine: FINDINGS: The vertebra are in normal alignment. No fracture is seen. There is mild diffuse degenerative disc disease. There are catheters which project over the abdomen. The distal catheter tips project over the pelvis. IMPRESSION: NO EVIDENCE FOR FRACTURE. pelvis: IMPRESSION: NO EVIDENCE FOR FRACTURE, IF THE PATIENT'S SYMPTOMS PERSIST RECOMMEND FOLLOW-UP IMAGING. Course/Dx - Diagnoses Provider Diagnoses: Low back pain, Pelvic contusion, Contusion of left knee Discharge - Sign-Out/Discharge Documenting (check all that apply): Patient Departure All imaging exams completed and their final reports reviewed: Yes - Discharge Plan Condition: Stable Disposition: HOME Patient Education Materials: Acute Low Back Pain (ED), Contusion in Adults (ED) , Knee Pain (ED) Referrals: Ephraim Piña MD [Primary Care Provider] - Additional Instructions: FOLLOW UP WITH YOUR DOCTOR IF NOT COMPLETELY IMPROVED. GET RECHECKED SOONER WITH ANY WORSENING OF YOUR CONDITION OR QUESTIONS OR CONCERNS. - Billing Disposition and Condition Condition: STABLE Disposition: Home
== END 2018-04-02 18:51 | disposition home or self-care (01) ==
LOC: UCCORT 16:13
DX: S80.02XA Contusion of left knee, initial encounter (principal); S30.0XXA Contusion of lower back and pelvis, initial encounter; M54.5 Low back pain; Z91.09 Other allergy status, other than to drugs and biological substances; W01.0XXA Fall on same level from slipping, tripping and stumbling without subsequent striking against object, initial encounter; Y92.9 Unspecified place or not applicable
CPT/HCPCS: 72110; 72170; 99212; A9270-GY; G0463

== ENCOUNTER 2018-11-25 14:49 | Emergency (ER) | payer MEDICARE, MEDICAID ==
--- OUTSIDE RECORDS SUMMARY | 2018-11-25 15:02 | XMS REPORT | Continuity of Care Document ---
:1965 External Reference #:[id number] Author Name Bernice Pressley, [facility] Address [address] [place] [id number] Care Team Providers Name Role Phone Ephraim Piña MD - General Care Team Information [employer]ander [phone] Practice Problems Active Problems Provider Date Breast finding Jared Degroot MD Onset: 03/03/2014 Closed fracture of distal end of radius Yana Estrada PA Onset: 08/24/2015 Closed fracture of upper end of humerus Paul Ellison M.D. Onset: 2017 Pain in axilla Jocelyn Shen MD Onset: 05/11/2017 Exposure to other specified factors, sequela Jocelyn Shen MD Onset: 2017 Shoulder joint pain Jocelyn Shen MD Onset: 08/23/2017 Body mass index 30+ - obesity Brittney Rodriguez PA Onset: 04/25/2018 Vasomotor rhinitis Brittney Rodriguez PA Onset: 04/25/2018 Social History Type Date Description Comments Sex Unknown Tobacco Use Start: Unknown Never Smoked Cigarettes ETOH Use Denies alcohol use Tobacco Use Start: Unknown Patient has never smoked Recreational Drug Use Denies Drug Use Smoking Status Reviewed: 04/25/18 Patient has never smoked Allergies, Adverse Reactions, Alerts Active Allergies Reaction Severity Comments Date NKDA 02/25/2014 Nickel 03/03/2014 Medications Active Medications SIG Qnty Indications Ordering Provider Date Cetirizine HCL Take One Tablet 30tabs J30.0 Sumit Castrejon MD 11/29/2016 10mg By Mouth Every Tablets Evening Calcium 600+D High 2 tabs po Unknown Potency [id number] Tablets Phenobarbital bid Unknown 64.8mg Tablets Vitamin D 1 by mouth Unknown 1000Unit twice a day Tablets Valtrex 2 by mouth twice Unknown 1gm Tablets a day as needed [facility] Acetaminophen 2 po as needed Unknown 325mg for pain/fever Tablets Azelastine HCL (Nasal) 1-2 spray each Unknown nare twice a day 137mcg/[place] Solution Guaifenesin ac 10 ml po every 4 Unknown hrs as needed 100-10mg/5ML Syrup Immunizations Description No Information Available Vital Signs Date Vital Result Comment 11/06/2018 9:45am BP Systolic 117 mmHg BP Diastolic 77 mmHg Body Temperature 96.2 F Heart Rate 68 /min Height 59 inches 4'11" Weight 158.00 lb BMI (Body Mass Index) 31.9 kg/m2 BSA (Body Surface Area) 1.67 m2 [place] body weight in kilograms 45 kg O2 % BldC Oximetry 98 % 04/25/2018 3:28pm BP Systolic Sitting Right Arm 119 mmHg BP Diastolic Sitting Right Arm 70 mmHg Heart Rate 64 /min Respiratory Rate 16 /min Height 57.5 inches 4'9.50" Weight 162.00 lb BMI (Body Mass Index) 34.4 kg/m2 BSA (Body Surface Area) 1.66 m2 [place] body weight in kilograms 45 kg O2 % BldC Oximetry 97 % ra Results Description No Information Available Procedures Date Code Description Status 11/06/2018 46177 tibial fracture proximal closed (plateau)w/o Completed manipulation 02/20/2015 [id number] Mammogram Completed 08/18/2014 [id number] Mammogram Completed 02/13/2014 [id number] Mammogram Completed 01/23/2014 [id number] Mammogram Completed 03/06/2013 [id number] Bone Mineral Density Test Completed Medical Devices Description No Information Available Encounters Description No Information Available Assessments Date Code Description Provider 11/06/2018 S82.101A Unspecified fracture of upper end of Bernice Pressley RPAC right tibia, initial encounter for closed fracture Plan of Treatment Future Appointment(s):11/12/2018 9:15 am - Bernice Pressley RP[facility] at [facility]/25/2019 3:00 pm - Brittney Rodriguez PA at [facility]/03/ 2019 - Bernice Pressley Naw[place]vina, [id number] Unspecified fracture of upper end of right tibia, initial encounter for closed fractureAllComments:I advised the patient to not only carry her cane but use it also. She is going to continue to wear the knee brace at all times except for hygiene purposes. I would like her to take a baby aspirin daily for the next couple of months as well. I will reevaluate her next week. She is out of work untilfurther notice. 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 Functional Status Functional Condition Comment Date Status Glasses Active Mental Status Description No Information Available Referrals Description No Information Available
--- OUTSIDE RECORDS SUMMARY | 2018-11-25 15:02 | XMS REPORT | Continuity of Care Document ---
:1965 External Reference #:[id number] Author Name Bernice Pressley, [facility] Address [address] [place] [phone] Care Team Providers Name Role Phone Ephraim Piña MD - General Care Team Information [employer] [phone] Practice Problems Active Problems Provider Date Breast [...] Medications SIG Qnty Indications Ordering Provider Date Aspirin 81 1 tab by mouth 90tabs Jocelyn Shen, 11/06/2018 81mg Tablets every day MD DENNY Cetirizine HCL Take One Tablet 30tabs J30.0 Sumit Castrejon MD 11/29/2016 10mg By Mouth Every Tablets Evening Calcium 600+D High 2 tabs po Unknown Potency [id number] Tablets Phenobarbital bid Unknown 64.8mg Tablets Vitamin D 1 by mouth Unknown 1000Unit twice a day Tablets Valtrex 2 by mouth twice Unknown 1gm Tablets a day as needed [facility] Acetaminophen 2 po as needed Unknown 325mg for pain/fever Tablets Azelastine HCL (Nasal) 1-2 spray each Unknown nare twice a day 137mcg/[place] Solution Guaifenesin ac 10 ml po every 4 Unknown hrs as needed 100-10mg/5ML Syrup Immunizations Description No Information Available Vital Signs Date Vital Result Comment 11/12/2018 9:36am BP Systolic 130 mmHg BP Diastolic 81 mmHg Body Temperature 96.0 F Heart Rate 66 /min Height 59.5 inches 4'11.50" Weight 155.00 lb BMI (Body Mass Index) 30.8 kg/m2 BSA (Body Surface Area) 1.66 m2 [place] body weight in kilograms 45 kg O2 % BldC Oximetry 97 % 11/06/2018 9:45am BP Systolic 117 mmHg BP Diastolic 77 mmHg Body Temperature 96.2 F Heart Rate 68 /min Height 59 inches 4'11" Weight 158.00 lb BMI (Body Mass Index) 31.9 kg/m2 BSA (Body Surface Area) 1.67 m2 [place] body weight in kilograms 45 kg O2 % BldC Oximetry 98 % Results Test Date Facility Test Result H/L Range Note Xray 11/12/2018 [facility] RMP, Knee, RT, Ap, < pending> [address] [facility] Lat [facility] Ob[facility], [address] [place] [id number] View (Supine) [phone] Procedures Date Code Description Status 11/12/2018 26746 X-Ray Knee Complete W/Obliques & Tunnel And/Or Completed Standing Views 11/06/2018 73467 tibial fracture proximal closed (plateau)w/o Completed manipulation 02/20/2015 [id number] Mammogram Completed 08/18/2014 [id number] Mammogram Completed 02/13/2014 [id number] Mammogram Completed 01/23/2014 [id number] Mammogram Completed 03/06/2013 [id number] Bone Mineral Density Test Completed Medical Devices Description No Information Available Encounters Description No Information Available Assessments Date Code Description Provider 11/12/2018 S82.101A Unsp fracture of upper end of right Bernice Pressley RPAC tibia, init for clos fx 11/06/2018 S82.101A Unspecified fracture of upper end of Bernice Pressley RPAC right tibia, initial encounter for closed fracture Plan of Treatment Future Appointment(s):11/26/2018 10:00 am - Bernice Pressley RPAC at [facility] Dtlzdl5304/25/2019 3:00 pm - Brittney Rodriguez PA at [facility]/09/ 2019 - Bernice Pressley [id number] Unsp fracture of upper end of right tibia, init for clos fxAllComments:Her fracture remains nondisplaced. I will reevaluate her in two weeks with x-rays on arrival, sooner with any problems or concerns. Functional Status Functional Condition Comment Date Status Glasses Active Mental Status Description No Information Available Referrals Description No Information Available
[2018-11-25 15:22] VITALS: BP 104/64
--- NOTE | 2018-11-25 15:26 | UC ---
Skin Complaint HPI - HPI Summary HPI Summary: PT LIVES AT A [facility]. HERE TODAY FOR A LEFT BACK CYST PRESENT FOR 5 DAYS. PT IS PRESENTLY TAKING CEPHALEXIN 500 MG PO TID, PRESCRIBED BY HER PCP. PT REPORTS AREA IS MORE PAINFUL. NO FEVER OR CHILLS. STAFF REPORTS CYST HAS DEVELOPED A HEAD. - History of Current Complaint Chief Complaint: UCSkin Time Seen by Provider: 11/25/18 15:20 Stated Complaint: CYST Hx Obtained From: Family/Patient Transport Orderly Hx Last Menstrual Period: march 2016 ?: No Onset/Duration: Sudden Onset, Lasting Days Skin Exposure Onset/Duration: Days Ago Timing: Constant Onset Severity: Mild Current Severity: Moderate Pain Intensity: 5 Location: Discrete - back Character: Swelling, Redness, Raised, Painful - Allergy/Home Medications Allergies/Adverse Reactions: Allergies Allergy/AdvReac Type Severity Reaction Status Date / Time nickel Allergy Rash Verified 11/25/18 15:06 Home Medications: Home Medications Aspirin 81 mg CHEW TAB* [Aspirin Low Dose TAB*] 81 mg PO DAILY 11/25/18 [ History Confirmed 11/25/18] Cephalexin CAP* [Keflex CAP*] 500 mg PO TID 11/25/18 [History Confirmed 11/25/18 ] PMH/Surg Hx/FS Hx/Imm Hx Previously Healthy: Yes - Surgical History Surgical History: Yes Surgery Procedure, Year, and Place: Shunt 08/1966. BILATERAL BREAST BIOPSY. DISLOCATED SHOULDER REPAIR - Family History Known Family History: Negative: Cardiac Disease, Hypertension - Social History Alcohol Use: None Substance Use Type: None Smoking Status (MU): Never Smoked Tobacco Review of Systems All Other Systems Reviewed And Are Negative: Yes Skin: Positive: Other - red raised cyst Is Patient Immunocompromised?: No Physical Exam Triage Information Reviewed: Yes Appearance: Well-Appearing, Well-Nourished, Pain Distress Vital Signs: Initial Vital Signs Temp 98.7 F 11/25/18 15:12 Pulse 64 11/25/18 15:12 Resp 18 11/25/18 15:12 BP 104/64 11/25/18 15:12 Pulse Ox 97 11/25/18 15:12 Vital Signs Reviewed: Yes Eye Exam: Normal ENT Exam: Normal Dental Exam: Normal Neck exam: Normal Respiratory Exam: Normal Respiratory: Positive: Chest non-tender, Lungs clear, Normal breath sounds Cardiovascular Exam: Normal Cardiovascular: Positive: RRR, No Murmur, Pulses Normal Abdominal Exam: Normal Bowel Sounds: Positive: Present Musculoskeletal Exam: Normal Neurological Exam: Normal Psychological Exam: Normal Skin: Positive: Significant Lesion(s) - quarter sized erythemic area with pustule center Procedures - Incision and Drainage Left Breast Anesthesia: Local Instrument(s): Scalpel Course/Dx - Course Course Of Treatment: hx obtained,e xam performed ,meds reviewed, tylenol given, I and d of the cyst on right trunk performed, removed moderate sized sebastious cyst. wound culture obtained. - Differential Diagnoses - Skin Complaint Differential Diagnoses: Abscess, Cellulitis - Diagnoses Provider Diagnosis: Sebaceous cyst of skin of left breast Discharge ED - Sign-Out/Discharge Documenting (check all that apply): Patient Departure All imaging exams completed and their final reports reviewed: No Studies - Discharge Plan Condition: Stable Disposition: HOME Patient Education Materials: Dermal Cyst Excision (DC) Referrals: Ephraim Piña MD [Primary Care Provider] - Additional Instructions: see insturctions on facility paperwork - Billing Disposition and Condition Condition: STABLE Disposition: Home
[2018-11-25] MEDS ORDERED: Lidocaine 2% PF * 5 ML VIAL INJ ONE (15:34)
[2018-11-25] MEDS ORDERED: Acetaminophen TAB* 325 MG PO PRN (16:02)
[2018-11-25] MEDS ORDERED: Acetaminophen TAB* 325 MG PO ONE (16:05)
--- NOTE | 2018-11-29 12:00 | UC ---
- Progress Note Progress Note: wound culture: Staph Lugdenensis jaime sensitive pt on cephalexin please call home and confirm continued abx after I+D Won 11/29/18 Course/Dx - Diagnoses Provider Diagnoses: Sebaceous cyst of skin of left breast Discharge ED - Sign-Out/Discharge Documenting (check all that apply): Post-Discharge Follow Up All imaging exams completed and their final reports reviewed: No Studies - Discharge Plan Condition: Stable Disposition: HOME Patient Education Materials: Dermal Cyst Excision (DC) Referrals: Ephraim Piña MD [Primary Care Provider] - Additional Instructions: see insturctions on facility paperwork - Billing Disposition and Condition Condition: STABLE Disposition: Home
== END 2018-11-25 16:28 | disposition home or self-care (01) ==
LOC: UCCORT 14:49
DX: N60.82 Other benign mammary dysplasias of left breast (principal); B95.7 Other staphylococcus as the cause of diseases classified elsewhere; Z79.82 Long term (current) use of aspirin
CPT/HCPCS: 10060; 87070; 87077; 87186; 87205; 87640; 87641; 99212; A9270-GY; G0463

== ENCOUNTER 2023-06-22 18:36 | Observation (INO) ==
[2023-06-22 19:58] LABS: ABS Eosinophils 0.1 10^3/uL (0.0-0.5); ABS Lymphocytes 1.5 10^3/uL (1.0-4.8); ABS Monocytes 0.5 10^3/uL (0.0-0.9); ABS Neutrophils 4.6 10^3/uL (1.5-7.6); ABS Nucleated RBC 0.01 10^3/ul; Eosinophil % 2.2 %; Hematocrit 39.2 % (35-45); Hemoglobin 13.3 g/dL (11.5-14.3); Lymphocyte % 22.3 %; Mean Corpuscular Hemoglobin 29.3 pg (27-33); Mean Corpuscular Hgb Conc 33.8 g/dL (31-36); Mean Corpuscular Volume 86.6 fL (80-97); Mean Platelet Volume 8.3 fL (7.5-11.2); Nucleated Red Blood Cells % 0.1 %/100WBC (0.0-0.8); Platelet Count 254 10^3/uL (150-450); Red Blood Count 4.53 10^6/uL (3.63-4.92); Red Cell Distribution Width 13.7 % (12-17); White Blood Count 6.8 10^3/uL (3.8-11.8)
[2023-06-22 20:22] LABS: Albumin 4.3 g/dL (3.2-5.2); Calcium 9.6 mg/dL (8.6-10.3); Creatinine, Serum 0.68 mg/dL (0.51-0.95); Globulin 2.1 g/dL (2-4); Potassium 4.2 mmol/L (3.5-5.0); Total Bilirubin 0.2 mg/dL (0.2-1.0); Total Protein 6.4 g/dL (6.4-8.9); eGFR CKD-EPI 102.2 (>60)
[2023-06-22 21:54] LABS: Urine Appearance Turbid; Urine Bilirubin Negative (Negative); Urine Blood Negative (Negative); Urine Color Colorless; Urine Glucose Negative (Negative); Urine Ketones Negative (Negative); Urine Nitrite Negative (Negative); Urine Protein Negative (Negative); Urine Specific Gravity 1.009 (1.002-1.030); Urine Urobilinogen Negative (Negative); Urine pH 7.5 (5.0-8.0)
[2023-06-22 22:07] LABS: Urine Bacteria Absent /HPF (Absent); Urine Red Blood Cell Trace(0-2/hpf) /HPF (0-Trace); Urine Squamous Epithelial Cell Present /HPF (Absent); Urine White Blood Cell 1+(6-10/hpf) /HPF (0-Trace)
[2023-06-23 05:51] LABS: ABS Eosinophils 0.2 10^3/uL (0.0-0.5); ABS Lymphocytes 1.4 10^3/uL (1.0-4.8); ABS Monocytes 0.5 10^3/uL (0.0-0.9); ABS Neutrophils 4.4 10^3/uL (1.5-7.6); ABS Nucleated RBC 0.01 10^3/ul; Eosinophil % 2.7 %; Hematocrit 40.4 % (35-45); Hemoglobin 13.8 g/dL (11.5-14.3); Lymphocyte % 21.8 %; Mean Corpuscular Hemoglobin 29.6 pg (27-33); Mean Corpuscular Hgb Conc 34.1 g/dL (31-36); Mean Corpuscular Volume 86.8 fL (80-97); Mean Platelet Volume 8.4 fL (7.5-11.2); Nucleated Red Blood Cells % 0.1 %/100WBC (0.0-0.8); Platelet Count 262 10^3/uL (150-450); Red Blood Count 4.65 10^6/uL (3.63-4.92); Red Cell Distribution Width 13.7 % (12-17); White Blood Count 6.5 10^3/uL (3.8-11.8)
[2023-06-23 06:17] LABS: INR 1.1 (0.83-1.13)
[2023-06-23 06:27] LABS: Anion Gap 6 mmol/L (2-16); Blood Urea Nitrogen 17 mg/dL (6-24); CO2 Carbon Dioxide 26 mmol/L (22-32); Calcium 7.9 mg/dL (8.6-10.3); Chloride 112 mmol/L (101-111); Glucose 73 mg/dL (70-100); Sodium 144 mmol/L (135-145); eGFR CKD-EPI 105.3 (>60)
[2023-06-23 10:14] VITALS: BP 135/82
== END 2023-06-23 10:12 | disposition home or self-care (01) ==
LOC: EDHOLD 18:36 → ED 18:36 → SUATTDRO 06-23 00:07 → EDHOLD 06-23 10:11
PROVIDERS: ADMIT Internal Medicine; ATTEND Internal Medicine